=== PATIENT | male | born 1955 | race Caucasian/White ===

== ENCOUNTER → 2018-12-19 | Outpatient (CLI) | payer MEDICAID, MEDICARE | END | disposition home or self-care (01) | LOC: RAD 15:09 | PROVIDERS: ATTEND Neurological Surgery | DX: I82.612 Acute embolism and thrombosis of superficial veins of left upper extremity (principal); I82.890 Acute embolism and thrombosis of other specified veins; M48.08 Spinal stenosis, sacral and sacrococcygeal region; M54.5 Low back pain; M41.9 Scoliosis, unspecified ==